=== PATIENT | male | born 1930 | race Caucasian/White ===

== ENCOUNTER → 2017-11-03 | Outpatient (CLI) | payer MEDICARE ==
[~2017-11-03] MED LIST: Adult Low Dose81 MG PO; CHOL10002 PO; DOXA4 PO; FINA5 PO; GLUC500 PO; LEVSOD125 PO; LEVSOD137 PO; MULVIT PO; POTA10T PO
== END | disposition home or self-care (01) ==
LOC: PLD 07:25 → LAB SHORT 07:25
DX: D48.5 Neoplasm of uncertain behavior of skin (principal)
CPT/HCPCS: 88305

== ENCOUNTER → 2017-12-05 | Outpatient (CLI) | payer MEDICARE | END | disposition home or self-care (01) | LOC: PLD 07:35 → LAB SHORT 07:35 | DX: C44.319 Basal cell carcinoma of skin of other parts of face (principal) | CPT/HCPCS: 88305 ==

== ENCOUNTER → 2018-04-10 | Outpatient (CLI) | payer MEDICARE | END | disposition home or self-care (01) | LOC: PLD 13:34 → LAB SHORT 13:34 | DX: C44.612 Basal cell carcinoma of skin of right upper limb, including shoulder (principal) | CPT/HCPCS: 88305 ==

== ENCOUNTER → 2018-05-01 | Outpatient (CLI) | payer MEDICARE | LOC: LAB SHORT 14:12 → PLD 14:12 | DX: C44.212 Basal cell carcinoma of skin of right ear and external auricular canal (principal) | CPT/HCPCS: 88305 ==

== ENCOUNTER → 2018-08-17 | Outpatient (CLI) | payer MEDICARE | LOC: PLD 08:26 → LAB SHORT 08:26 | DX: L82.1 Other seborrheic keratosis (principal) | CPT/HCPCS: 88305 ==

== ENCOUNTER → 2019-09-10 | Outpatient (CLI) | payer MEDICARE | END | disposition home or self-care (01) | LOC: LAB SHORT 08:47 → PLD 08:47 | DX: C44.319 Basal cell carcinoma of skin of other parts of face (principal) | CPT/HCPCS: 88305 ==

== ENCOUNTER → 2019-10-02 | Outpatient (CLI) | payer MEDICARE | END | disposition home or self-care (01) | LOC: PLD 07:49 → LAB SHORT 07:49 | DX: C44.319 Basal cell carcinoma of skin of other parts of face (principal) | CPT/HCPCS: 88305 ==

== ENCOUNTER → 2019-10-16 | Outpatient (CLI) | payer MEDICARE | END | disposition home or self-care (01) | LOC: LAB SHORT 14:54 → PLD 14:54 | DX: C44.310 Basal cell carcinoma of skin of unspecified parts of face (principal) | CPT/HCPCS: 88305 ==

== ENCOUNTER → 2020-05-27 | Outpatient (CLI) | payer MEDICARE | LOC: PLD 15:07 → LAB SHORT 15:07 | DX: I87.2 Venous insufficiency (chronic) (peripheral) (principal); L81.4 Other melanin hyperpigmentation | CPT/HCPCS: 88305; 88313; 88342 ==

== ENCOUNTER → 2020-12-08 | Outpatient (CLI) | payer MEDICARE | END | disposition home or self-care (01) | LOC: LAB SHORT 11:16 → LAB 11:16 | DX: C44.519 Basal cell carcinoma of skin of other part of trunk (principal) | CPT/HCPCS: 88305 ==

== ENCOUNTER → 2021-01-06 | Outpatient (CLI) | payer MEDICARE | END | disposition home or self-care (01) | LOC: LAB 08:26 → LAB SHORT 08:26 | DX: C44.629 Squamous cell carcinoma of skin of left upper limb, including shoulder (principal) | CPT/HCPCS: 88305 ==

== ENCOUNTER → 2021-01-22 | Outpatient (CLI) | payer MEDICARE | END | disposition home or self-care (01) | LOC: PLD 11:27 → LAB SHORT 11:27 | DX: C44.629 Squamous cell carcinoma of skin of left upper limb, including shoulder (principal); L82.1 Other seborrheic keratosis; L81.4 Other melanin hyperpigmentation | CPT/HCPCS: 88305 ==

== ENCOUNTER → 2021-06-08 | Outpatient (CLI) | payer MEDICARE | END | disposition home or self-care (01) | LOC: LAB SHORT 12:07 → LAB 12:07 | DX: L85.8 Other specified epidermal thickening (principal) | CPT/HCPCS: 88305 ==

== ENCOUNTER → 2021-08-06 | Outpatient (CLI) | payer MEDICARE | END | disposition home or self-care (01) | LOC: LAB 11:25 → LAB SHORT 11:25 | DX: C44.712 Basal cell carcinoma of skin of right lower limb, including hip (principal) | CPT/HCPCS: 88305 ==